=== PATIENT | male | born 1965 | race Caucasian/White ===

== ENCOUNTER 2016-10-07 20:52 | Inpatient (IN) | payer MEDICAID, OTHER ==
[~2016-10-07] VITALS: Ht 170.2 cm; Wt 104.0 kg
[2016-10-07 22:35] LABS: ADD SCAN DIFF NO
[2016-10-07 22:41] LABS: BASOPHILS % 0.5 % (0.0-2.0); EOSINOPHILS # 0.2 10^3/ul (0.0-0.5); EOSINOPHILS % 2.5 % (0.0-7.0); HEMATOCRIT 24.4 % (42.0-52.0); HEMOGLOBIN 7.8 g/dl (14.0-18.0); LYMPHOCYTES % 33.4 % (15.0-51.0); MEAN CORPUSCULAR HEMOGLOBIN 26.1 pg (29.0-33.0); MEAN CORPUSCULAR VOLUME 81.6 fl (82.0-101.0); MEAN PLATELET VOLUME 11.1 fl (7.4-10.4); MONOCYTE # 0.5 10^3/ul (0.3-0.9); MONOCYTES % 7.7 % (0.0-11.0); NEUTROPHIL # 3.4 10^3/ul (1.6-7.5); NEUTROPHILS % 55.7 % (39.0-77.0); PLATELET COUNT 216 10^3/UL (140-415); RED BLOOD COUNT 2.99 10^6/ul (4.70-6.10); RED CELL DISTRIBUTION WIDTH 14.4 % (11.5-14.5); WHITE BLOOD COUNT 6.1 10^3/ul (4.8-10.8)
--- NOTE | 2016-10-07 23:42 | RADRPT ---
PROCEDURE: XR Chest. CLINICAL INDICATION: Chest pain. TECHNIQUE: Portable AP upright view of the chest was obtained. COMPARISON: None. FINDINGS: The cardiomediastinal silhouette is within upper normal limits. Right greater than left lower lobe consolidation is probably atelectasis. The costophrenic angles are blunted unable to exclude small pleural effusions. There is no evidence of pulmonary vascular congestion. Right internal jugular P felipe-Cath is seen the tip projecting at the superior vena cava level above the right atrial junction . There is no evidence of pneumothorax. The osseous structures are intact with no evidence for acu te abnormality. RPTAT:HJJR IMPRESSION: 1. Right greater than left lower lobe consolidation likely atelectasis with small bilateral pleural effusions. Pneumonia with parapneumonic effusions is a possibility in the proper clinical setting. Correlation with cough and fever is recommended. 2. No evidence of congestive heart failure. 3. Right-sided internal jugular approach Perma-Cath in satisfactory position without evidence of pn eumothorax. Physician Denisse Date Time Electronically viewed and signed by Physician Denisse on 10/07/2016 23:41 JR/
[2016-10-07 23:46] LABS: INR 1.01; PARTIAL THROMBOPLASTIN TIME 29.7 Sec (25.0-35.0); PROTIME 13.3 Sec (12.2-14.2)
[2016-10-07 23:48] LABS: ALBUMIN 2.4 g/dl (3.3-4.9); ALBUMIN/GLOBULIN RATIO 0.82; CALCIUM 6.8 mg/dl (8.4-10.2); POTASSIUM 3.7 mmol/L (3.5-5.1); TOTAL PROTEIN 5.3 g/dl (6.1-8.1)
[2016-10-07 23:59] LABS: TROPONIN-I 0.035 ng/ml (0.00-0.12)
[2016-10-08] VITALS (13 sets, daily range): BP systolic 125–178; BP diastolic 69–95; PULSE 60–78; RESP 18–22; TEMP 98; Ht 170.2 cm; Wt 104.0 kg
[2016-10-08] MEDS ORDERED: hydrALAzine 20 MG INJ IV ONE
[2016-10-08] MEDS ORDERED: CALC0.2511 PO (00:12)
[2016-10-08] MEDS ORDERED: BUME0.5T PO (00:12)
[2016-10-08] MEDS ORDERED: DARB25VI IJ (00:12)
[2016-10-08] MEDS ORDERED: FOLI-49 PO (00:12)
[2016-10-08] MEDS ORDERED: ERGO500037 PO (00:12)
[2016-10-08] MEDS ORDERED: TAMS-14 PO (00:12)
[2016-10-08] MEDS ORDERED: LOSA50TA2 PO (00:12)
[2016-10-08] MEDS ORDERED: ATOR40TA68 PO (00:12)
[2016-10-08] MEDS ORDERED: CARV12.598 PO (00:12)
[2016-10-08] MEDS ORDERED: DOCU-159 PO (00:12)
--- NOTE | 2016-10-08 01:35 | RADRPT ---
PROCEDURE: CT head, without contrast. CLINICAL INDICATION: Involuntary twitching. TECHNIQUE: Noncontrast CT examination of the head, with axial, sagittal and coronal reformatted im ages. Automated dose exposure control was employed. CTDI: 89.62 and DLP: 1620.51. Repeated exam secondary to patient's twitching. COMPARISON: None. FINDINGS: Patient motion degrades images. Note acute hemorrhage. Subarachnoid spaces are substantially preserved and symmetric. Ventricles are unremarkable. No mass effect. Mooney-white matter distinction is preserved without evident decreased attenuation t o suggest acute or recent infarct. Sinuses and osseous structures are unremarkable. IMPRESSION: No acute process in the head. RPTAT: [facility] Physician Bc Date Time Electronically viewed and signed by Physician Bc on 10/08/2016 01:34 RS/
[2016-10-08] MEDS ORDERED: CEFEPIME 1GM/50 ML (PMX) 50 ML IVPB ONE (02:27)
[2016-10-08] MEDS ORDERED: CIPROFLOXACIN 400MG/D5W 200 ML IVPB ONE (02:28)
--- NOTE | 2016-10-08 02:34 | ERA ---
ER Documentation Chief Complaint Date/Time DATE: 10/08/16 TIME: 02:33 Chief Complaint weakness after being dialyzed today HPI This is a 51-year-old male complains of generalized weakness of pain. He also was of involuntary fasciculations of the upper extremities. He said he felt fevers and chills. No nausea no vomiting. No other current complaints. No focal neurological issues on the fasciculations as mentioned. ROS All systems reviewed and are negative except as per history of present illness. Medications Home Meds Reported Medications Losartan Potassium* (Cozaar*) 50 Mg Tablet, 50 MG PO DAILY, #30 TAB 10/08/16 Atorvastatin* (Atorvastatin*) 40 Mg Tablet, 40 MG PO QHS, #30 TAB 10/08/16 Folic Acid* (Folic Acid*) 1 Mg Tablet, 1 MG PO DAILY, TAB 10/08/16 Tamsulosin Hcl* (Flomax*) 0.4 Mg Cap.er.24h, 0.4 MG PO QPM, CAP 1 CAPSULE ORAL DAILY. TAKE AT NIGHT AND BE AWARE OF BP DROP, BE Careful with position change. 10/08/16 Ergocalciferol (Vitamin D2) (VITAMIN D2) 50,000 Unit Capsule, 94036 UNIT PO QWEEK-SUN, CAP 10/08/16 Carvedilol* (Coreg*) 12.5 Mg Tablet, 12.5 MG PO BID, #60 TAB 10/08/16 Docusate Sodium* (Docusate Sodium*) 100 Mg Capsule, 100 MG PO BID, #60 CAP 10/08/16 Calcitriol* (Calcitriol*) 0.25 Mcg Capsule, 0.25 MCG PO DAILY, CAP 10/08/16 Bumetanide* (Bumetanide*) 0.5 Mg Tablet, 0.5 MG PO DAILY, TAB 10/08/16 Darbepoetin Maximo in Polysorbat (Aranesp) 25 Mcg/1 Ml Vial, 25 MCG IJ QWEEK-SUN, VIAL 1ML SQ EVERY WEEK ON THURSDAY. RESTRICTED TO INITIATION OF THERAPY ONLY WHEN HEMOGLOBIN(Hgb)LEVELS LESS OSEK46l/dl. mONITOR Hgb LEVELS: MAX Hgb OF 10g?dl FOR CHRONIC KIDNEY DISEASE (CKD) WITHOUT DIALYSIS & 11g/dl FOR CKD WITH DIALYSIS.Hgb LEVELS TO BE MONITORES WEEKLY UNTIL STABLE, THEN EVERY MONTH. 10/08/16 Allergies Allergies: Coded Allergies: No Known Allergy (Unverified , 10/07/16) PMhx/Soc History of Surgery: Yes Anesthesia Reaction: No Hx Neurological Disorder: No Hx Respiratory Disorders: No Hx Cardiac Disorders: No Hx Psychiatric Problems: No Hx Miscellaneous Medical Probl: Yes (dialysis patient, renal disease) Hx Alcohol Use: No Hx Substance Use: No Hx Tobacco Use: No Smoking Status: Former smoker Physical Exam Vitals Vital Signs Date Time Temp Pulse Resp B/P Pulse Ox O2 Delivery O2 Flow Rate FiO2 10/08/16 01:28 97.7 69 16 174/92 100 Room Air 10/08/16 01:10 78 16 173/97 98 Room Air 10/08/16 00:31 168/86 10/08/16 00:18 181/101 10/07/16 23:58 62 16 216/102 100 Room Air 10/07/16 22:30 69 18 170/88 97 Room Air 10/07/16 20:57 97.7 80 20 198/99 99 Physical Exam Const: [] Head: Atraumatic Eyes: Normal Conjunctiva ENT: Normal External Ears, Nose and Mouth. Neck: Full range of motion..~ No meningismus. Resp: Clear to auscultation bilaterally Cardio: Regular rate and rhythm, no murmurs Abd: Soft, non tender, non distended. Normal bowel sounds Skin: No petechiae or rashes Back: No midline or flank tenderness Ext: No cyanosis, or edema Neur: Awake and alert Psych: Normal Mood and Affect Result Diagram: 10/07/16 2315 10/07/16 2315 Results 24 hrs Laboratory Tests Test 10/07/16 23:15 White Blood Count 6.110^3/ul Red Blood Count 2.9910^6/ul Hemoglobin 7.8g/dl Hematocrit 24.4% Mean Corpuscular Volume 81.6fl Mean Corpuscular Hemoglobin 26.1pg Mean Corpuscular Hemoglobin Concent 32.0g/dl Red Cell Distribution Width 14.4% Platelet Count 32476^3/UL Mean Platelet Volume 11.1fl Neutrophils % 55.7% Lymphocytes % 33.4% Monocytes % 7.7% Eosinophils % 2.5% Basophils % 0.5% Nucleated Red Blood Cells % 0.0/100WBC Neutrophils # 3.410^3/ul Lymphocytes # 2.010^3/ul Monocytes # 0.510^3/ul Eosinophils # 0.210^3/ul Basophils # 0.010^3/ul Nucleated Red Blood Cells # 0.010^3/ul Prothrombin Time 13.3Sec Prothrombin Time Ratio 1.0 INR International Normalized Ratio 1.01 Activated Partial Thromboplast Time 29.7Sec Sodium Level 136mmol/L Potassium Level 3.7mmol/L Chloride Level 101mmol/L Carbon Dioxide Level 32mmol/L Anion Gap 7 Blood Urea Nitrogen 26mg/dl Creatinine 5.00mg/dl Glucose Level 145mg/dl Calcium Level 6.8mg/dl Total Bilirubin 0.0mg/dl Direct Bilirubin 0.00mg/dl Indirect Bilirubin 0.0mg/dl Aspartate Amino Transf (AST/SGOT) 26IU/L Alanine Aminotransferase (ALT/SGPT) 25IU/L Alkaline Phosphatase 51IU/L Troponin I 0.035ng/ml B-Type Natriuretic Peptide 68685ZH/ML Total Protein 5.3g/dl Albumin 2.4g/dl Globulin 2.90g/dl Albumin/Globulin Ratio 0.82 Lipase 84U/L Current Medications Medications (Trade) Dose Ordered Sig/Gabriella Route PRN Reason Start Time Stop Time Status Last Admin Dose Admin Hydralazine HCl 20 mg 20 mg ONCE ONCE IV 10/08/16 00:00 10/08/16 00:01 DC 10/08/16 00:01 Cefepime HCl 50 ml @ 100 mls/hr ONCE ONCE IVPB 10/08/16 02:27 10/08/16 02:56 Ciprofloxacin/ Dextrose (Cipro Ivpb) 200 ml @ 200 mls/hr ONCE ONCE IVPB 10/08/16 02:28 10/08/16 03:27 Procedures/MDM EKG: Rate/Rhythm: [Normal Sinus Rhythm] QRS, ST, T-waves: [No changes consistent w/ acute ischemia] Impression: [No evidence of ischemia or arrhythmia] Chest X-ray 1V Interpreted by me: Soft Tissue: No acute abnormalities Bones: No acute abnormalities Mediastinum/Cardiac Silhouette/Lungs: Bilateral patchy infiltrates CT of the head is negative Medical decision-makin-year-old male with bilateral pneumonia. Started on broad-spectrum antibiotics post blood cultures. Will be admitted to hospitalist. Departure Diagnosis: Primary Impression: Acute weakness Additional Impression: Bilateral pneumonia Qualified Code: J18.9 - Pneumonia of both lower lobes due to infectious organism Condition: Serious XAVIER ANDRADE October 08, 2016 02:34
[2016-10-08] MEDS ORDERED: morphine 4 MG/ML VIAL IV STA (02:58)
[2016-10-08] MEDS ORDERED: ONDANSETRON 4 MG INJ IV STA (02:58)
[2016-10-08] MEDS ORDERED: ONDANSETRON 4 MG INJ IV PRN (05:00)
[2016-10-08] MEDS ORDERED: ALBUTEROL/IPRATROPIUM (NEB) 3 ML AMP HHN PRN (05:00)
[2016-10-08] MEDS ORDERED: GLUCOSE GEL 15 GRAM TUBE PO PRN ×2 (05:15)
[2016-10-08] MEDS ORDERED: GLUCAGON 1 MG INJ IM PRN (05:15)
[2016-10-08] MEDS ORDERED: GLUCOSE GEL 15 GRAM TUBE BUCCAL PRN (05:15)
[2016-10-08] MEDS ORDERED: DEXTROSE 50% 50 ML SYRINGE IV PRN ×2 (05:15)
[2016-10-08] MEDS: INSULIN ASPART [NOVOLOG] 3 ML PEN SC SCH ×4 (07:55→20:29)
[2016-10-08] MEDS: hydrALAzine 20 MG INJ IV PRN (08:12)
[2016-10-08] MEDS: INSULIN GLARGINE [LANtus] 3 ML PEN SC SCH (08:15)
[2016-10-08] MEDS: ACETAMINOPHEN 325 MG TAB PO PRN (08:22)
--- NOTE | 2016-10-08 10:06 | QN ---
Documentation Comment Problem list: 1. Involuntary muscle jerks versus fasciculations likely secondary to hypocalcemia: We will also rule out order electrolyte abnormalities 2. Uncontrolled hypertension 3. End-stage renal disease on hemodialysis with severe fluid retention 4. Anemia of chronic kidney disease Plan: * Replace electrolytes * Lower extremity Dopplers to rule out DVT * Consider albumin infusion possible diuretic therapy to help with severe fluid retention * Titrate antihypertensives for improved control * If no improvement with jerks, consider muscle relaxants. JOSE SANCHEZ October 08, 2016 10:06
[2016-10-08] MEDS ORDERED: LOSARTAN 50 MG TAB PO SCH (10:30)
[2016-10-08] MEDS ORDERED: ALBUMIN HUMAN 25% 100 ML IV SCH (10:30)
[2016-10-08] MEDS ORDERED: ERGOCALCIFEROL 50,000 UNIT CAP PO SCH (10:30)
[2016-10-08] MEDS ORDERED: CALCIUM GLUCONATE 10% 2 GM in SOD CHLORIDE 0.9% 100 ML IVPB ONE (11:00)
--- NOTE | 2016-10-08 11:02 | HP ---
DATE OF ADMISSION: 10/08/2016 CHIEF COMPLAINT: Uncontrolled body shaking. HISTORY OF PRESENT ILLNESS: The patient is a 51-year-old male with a history of end-stage renal dis ease on dialysis, hypertension, diabetes, gout, who presents to the emergency department with the sulema stated chief complaint. He states starting 2 days ago he noticed that his upper body including both of his arms and his face, was starting to shake uncontrollably. Symptoms usually last a few se conds, but it happened so often repeatedly. He denied any weakness, numbness, visual disturbance, h eadache. He also denied any recent trauma. He seems to suggest that this uncontrolled movement for the most part seems to start when he tries to do something, but it also happens when he is at rest. During my interview, I actually noticed the movements and that they happened every 3 minutes or so , lasting 2 to 3 seconds. The patient denied similar problems in the past. When the patient presented to the ER, initially his blood pressure was 174/92. Laboratory values sh ow a hemoglobin of 7.8 and also his BNP was almost 77,000. Head CT was done which was negative for any acute findings. The chest x-ray shows bilateral pneumonia, right greater than left, with possib ility of pneumonia with parapneumonic effusion. The patient was given antihypertensive, Zofran, betsy n medication as well as ciprofloxacin and cefepime when he was in the ER. REVIEW OF SYSTEMS: A 12-point review of systems was performed, negative except as mentioned in the HPI. PAST MEDICAL HISTORY: As per HPI. PAST SURGICAL HISTORY: Back surgery. SOCIAL HISTORY: Denied history of tobacco, alcohol or illicit drug use. ALLERGIES: NO KNOWN DRUG ALLERGIES. HOME MEDICATIONS: 1. Tamsulosin. 2. Aranesp weekly. 3. Lipitor. 4. Coreg. 5. Cozaar. 6. Bumex. 7. Docusate. 8. Calcitriol. 9. Folic acid. 10. . PHYSICAL EXAMINATION: VITAL SIGNS: Blood pressure 170/93, heart rate 74, respiratory rate 20, temperature 97.8, oxygen sa turation 94% on room air. GENERAL: The patient lying in bed in no acute distress. He is answering questions appropriately. HEENT: No obvious head deformity. Pupils are reactive to light. Extraocular muscles intact. CARDIOVASCULAR: Regular rate and rhythm with no extra sounds. LUNGS: Clear. ABDOMEN: Soft, nontender, nondistended. Positive bowel sounds. EXTREMITIES: No edema. NEUROLOGIC: He has 5/5 strength in both upper and lower extremities. No focal deficits. Sensation s are intact. He is alert and oriented. LABORATORY DATA: Pertinent positives results as mentioned in the HPI. IMAGING: Chest x-ray and CT of the head results as mentioned in the HPI. IMPRESSION: 1. Uncontrolled body movements. 2. End-stage renal disease, on dialysis. 3. Hypertension, blood pressure not within goal. 4. History of diabetes. 5. History of gout. 6. History of depression. 7. Anemia, likely anemia of chronic disease. PLAN: We will obtain an MRI of the brain to help in the diagnosis of his presentation. We will sommer ce a neurology consult. The symptom could possibly be essential tremor. We will await neurology ev aluation. In the meantime, we will place a nephrology consult for continued dialysis. We will cont inue his home medications with adjustment as needed. He needs better blood pressure control. We wi ll continue diuresis management. His anemia is likely a result of chronic disease from renal failur e. We will check iron profile and ferritin. We will monitor his hemoglobin and transfuse if needed . Further workup and management will be per clinical course. Dictated By: XAVIER CONKLIN/AWILDA Conf#: [id number] DID#: [id number]
--- NOTE | 2016-10-08 11:23 | RADRPT ---
PROCEDURE: US DVT. CLINICAL INDICATION: Bilateral lower extremity edema. Evaluate for deep venous thrombosis.. TECHNIQUE: Multiple longitudinal and transverse images of the bilateral lower extremity veins were obtained with paul scale and color Doppler imaging. 2D grayscale measurements with compression, co juan Doppler flow, and augmentation was performed. The calf veins were interrogated as well. COMPARISON: No prior studies are available for comparison. FINDINGS: The bilateral common femoral, superficial femoral and popliteal veins are normally compressible thro ughout. Color flow demonstrates normal filling of the vessel. Normal waveforms are visualized and there is normal response to augmentation. IMPRESSION: 1. No evidence of a deep vein thrombosis involving either lower extremity. RPTAT: [facility] Physician Mikaela Date Time Electronically viewed and signed by Physician Mikaela on 10/08/2016 11:22 /
[2016-10-08] MEDS: FUROSEMIDE 40 MG INJ IV SCH ×2 (11:48→18:21)
[2016-10-08] MEDS: DOCUSATE SODIUM 100 MG CAP PO SCH ×2 (11:48→20:17)
[2016-10-08] MEDS: CALCITRIOL 0.25 MCG CAP PO SCH (11:48)
[2016-10-08 11:55] LABS: ADD SCAN DIFF NO
[2016-10-08 12:02] LABS: BASOPHILS % 0.5 % (0.0-2.0); EOSINOPHILS # 0.1 10^3/ul (0.0-0.5); HEMATOCRIT 25.6 % (42.0-52.0); HEMOGLOBIN 8.3 g/dl (14.0-18.0); LYMPHOCYTES # 1.1 10^3/ul (0.8-2.9); LYMPHOCYTES % 17.8 % (15.0-51.0); MEAN CORPUSCULAR HEMOGLOBIN 26.4 pg (29.0-33.0); MEAN CORPUSCULAR HGB CONC 32.4 g/dl (32.0-37.0); MEAN CORPUSCULAR VOLUME 81.5 fl (82.0-101.0); MONOCYTE # 0.4 10^3/ul (0.3-0.9); MONOCYTES % 6.1 % (0.0-11.0); NEUTROPHIL # 4.4 10^3/ul (1.6-7.5); NEUTROPHILS % 73.9 % (39.0-77.0); PLATELET COUNT 236 10^3/UL (140-415); RED BLOOD COUNT 3.14 10^6/ul (4.70-6.10); RED CELL DISTRIBUTION WIDTH 14.2 % (11.5-14.5); WHITE BLOOD COUNT 5.9 10^3/ul (4.8-10.8)
[2016-10-08] MEDS: HEPARIN 5,000 UNIT/0.5 ML VIAL SC SCH ×2 (12:04→20:28)
[2016-10-08 12:22] LABS: ALBUMIN 2.4 g/dl (3.3-4.9); ALBUMIN/GLOBULIN RATIO 0.77; CALCIUM 6.8 mg/dl (8.4-10.2); CREATININE 5.62 mg/dl (0.61-1.24); MAGNESIUM 1.6 mg/dl (1.7-2.5); PHOSPHORUS 4.3 mg/dl (2.5-4.9); POTASSIUM 4.1 mmol/L (3.5-5.1); TOTAL PROTEIN 5.5 g/dl (6.1-8.1)
[2016-10-08] MEDS ORDERED: LEVOFLOXACIN 500MG/D5W (PMX) 100 ML IVPB ONE (15:00)
[2016-10-08] MEDS ORDERED: NIFEdipine (XL) 30 MG TAB PO ONE (18:30)
--- NOTE | 2016-10-08 18:43 | CONS ---
DATE OF ADMISSION: 10/08/2016 DATE OF CONSULTATION: 10/08/2016 TYPE OF CONSULTATION: Nephrology. REFERRING PHYSICIAN: JOSE SANCHEZ MD. REASON FOR CONSULTATION: Maintenance hemodialysis in a chronic dialysis patient , accelerated hypertension. HISTORY OF PRESENT ILLNESS: This is a 51-year-old male with a past medical history of hypertension, diabetes mellitus, depression, history of gout, end- stage renal disease on hemodialysis who goes to the [facility] Dialysis unit. The patient presented with generalized weakness, fatigue, and also was complaining of some shortness of breath. The patient is noted to have uncontrolled body shaking associated with elevated blood pressure of 174/92. His hemoglobin was 7.8 and BNP was 77,000. CT was done which was negative for any acute findings. Chest x-ray shows bilateral pneumonia, right greater than left. The possibility of pneumonia with parapneumonic effusions. He was given IV antibiotics and antihypertensive Zofran in the emergency room and he gets admitted to the telemetry floor for further workup and treatment. REVIEW OF SYSTEMS: Positive for shortness of breath, weakness, sweating and uncontrolled body shaking. PAST MEDICAL HISTORY: Hypertension, diabetes mellitus, gout, end-stage renal disease on hemodialysis Thursday, and Thursday. PAST SURGICAL HISTORY: History of back surgery. SOCIAL HISTORY: The patient denies any history of tobacco smoking, alcohol or illicit drug use. ALLERGIES: NO KNOWN DRUG ALLERGIES. HOME MEDICATIONS: As per medical reconciliation. PHYSICAL EXAMINATION: VITAL SIGNS: Temperature 98.2, heart rate 60, respiration 19, blood pressure 160/80, saturation 98% on 2 liters nasal cannula. GENERAL: Awake, alert. Mild distress due to the shortness of breath. HEENT: Normal. Oropharynx clear. Pupil equal, round, reactive to light and accommodation. NECK: Supple, no JVD, no lymphadenopathy. LUNGS: Bibasilar crackles present. No wheezing. HEART: S1, S2, with regular rhythm, no murmur. ABDOMEN: Soft, nontender, nondistended. Bowel sounds are present. EXTREMITIES: 1+ pitting edema. NEUROLOGICAL: Nonfocal, intact. PSYCHIATRIC: Appropriate affect and mood. LABORATORY DATA/DIAGNOSTIC IMAGING: WBC 5.9, hemoglobin 8.3, platelet count 236. Sodium 135, potassium 4.1, chloride 101, bicarbonate 31, BUN 28, creatinine 5.6, glucose 105, calcium 6.8, albumin is 2.4, magnesium 1.6. PT 13 , PTT 29, INR 1.01. IMPRESSION: This is a 59-year-old male who is getting admitted by hospitalist team for uncontrolled body movements, possible pneumonia and renal has been consulted for monitoring his hemodialysis. 1. End-stage renal disease on hemodialysis 3 times a week. 2. Accelerated hypertension. 3. Uncontrolled body movements. 4. History of diabetes mellitus. 5. History of gout. 6. History of depression. 7. History of anemia of chronic renal disease. PLAN: Thank you, Dr. Sanchez for this consultation. The patient gets his regular scheduled dialysis on Thursday, and Thursday. Currently, his blood pressure is high, but his electrolytes are stable. I will plan for his hemodialysis to be done tomorrow. 1. MRI has been ordered for workup of uncontrolled body movements. 2. Due to his elevated blood pressures, I will give patient Procardia-XL 30 mg p.o. daily x1 dose now and then we will use hydralazine p.r.n. systolic blood pressure more than 150. 3. The patient is currently seen on the telemetry floor, continued ergocalciferol 50,000 units every week for his Vitamin D deficiency. 4. The patient is currently seen in the emergency room and he will be followed up along with his course in the hospital. Dictated By: TRIPP GARAY MD, KP/AWILDA Conf#: [id number] DID#: [id number] MTDD
[2016-10-08] MEDS ORDERED: MAGNESIUM SULFATE 1 GM/D5W 100 ML IVPB ONE (19:30)
[2016-10-08] MEDS: TAMSULOSIN (SR) 0.4 MG CAP PO SCH (20:17)
[2016-10-09] VITALS (20 sets, daily range): BP systolic 136–196; BP diastolic 74–105; PULSE 62–79; RESP 18–20
[2016-10-09] MEDS: ACCU-CHEK XX SCH (02:00)
[2016-10-09] MEDS ORDERED: morphine 4 MG/ML VIAL IV PRN (04:00)
[2016-10-09] MEDS: FUROSEMIDE 40 MG INJ IV SCH ×2 (05:45→18:52)
--- NOTE | 2016-10-09 06:08 | RADRPT ---
PROCEDURE: CT Chest without contrast. CLINICAL INDICATION: Shortness of breath and hypoxia TECHNIQUE: Spiral CT images through the chest without contrast. Coronal and sagittal reformatted images were obtained from the axial source images. The total exam CTDI equals 15.84 mGy and the tota l exam DLP equals 611.51 mGy-cm. One or more of the following dose reduction techniques were used: a utomated exposure control, adjustment of the mA and/or kV according to patient size, or use of itera tive reconstruction technique. COMPARISON: Chest x-ray from 10/07 FINDINGS: Large right and tiny left pleural effusions are seen with associated compressive atelectasis. Right dialysis catheter is seen with tip in the right atrium. Small to moderate pericardial effusion is s een. The heart size is top normal. Aortic and coronary artery calcification is seen. There is diff use anasarca. No definite hilar or mediastinal adenopathy. The gallbladder is contracted. Mild deg enerative change of the spine is seen. Old left posterior rib fractures.. IMPRESSION: Cardiomegaly and small to moderate pericardial effusion. Right greater than left pleural effusions with associated compressive atelectasis. Dialysis catheter. Anasarca. Atherosclerotic change. RPTAT: [facility] Physician Suzie Date Time Electronically viewed and signed by Eulalia Palmer Physician on 10/09/2016 06:08 DEMETRIO/
[2016-10-09] MEDS: INSULIN ASPART [NOVOLOG] 3 ML PEN SC SCH ×4 (07:55→21:00)
[2016-10-09] MEDS: INSULIN GLARGINE [LANtus] 3 ML PEN SC SCH (08:41)
[2016-10-09] MEDS: HEPARIN 5,000 UNIT/0.5 ML VIAL SC SCH ×2 (09:00→21:00)
--- NOTE | 2016-10-09 09:16 | CONS ---
Date/Time of Note Date/Time of Note DATE: 10/09/16 TIME: 09:09 Assessment/Plan Assessment/Plan Additional Assessment/Plan 1. End-stage renal disease on hemodialysis 3 times a week. 2. Accelerated hypertension. 3. Uncontrolled body movements. 4. History of diabetes mellitus. 5. History of gout. 6. History of depression. 7. History of anemia of chronic renal disease. PLAN: plan for HD today and tomorrow with ultrafiltration BP stable afebrile, neurology consult MRI brain will follow up Consultation Date/Type/Reason Admit Date/Time October 08, 2016 at 02:28 Initial Consult Date September Type of Consultation: NEPHROLOGY Reason for Consultation ESRD on HD chronic Referring Provider: JOSE SANCHEZ 24 HR Interval Summary Free Text/Dictation c/o jerking movements, Plan for HD today Exam/Review of Systems Vital Signs Vitals Vital Signs Date Time Temp Pulse Resp B/P Pulse Ox O2 Delivery O2 Flow Rate FiO2 10/09/16 08:00 62 10/09/16 07:32 98.3 19 157/79 96 10/08/16 16:50 2.0 28 10/08/16 04:15 Room Air Intake and Output 10/08/16 10/08/16 10/09/16 15:00 23:00 07:00 Intake Total 220 ml 450 ml 800 ml Output Total 200 ml 900 ml Balance 20 ml 450 ml -100 ml Exam GENERAL: Awake, alert. Mild distress due to the shortness of breath. HEENT: Normal. Oropharynx clear. Pupil equal, round, reactive to light and accommodation. NECK: Supple, no JVD, no lymphadenopathy. LUNGS: Bibasilar crackles present. No wheezing. HEART: S1, S2, with regular rhythm, no murmur. ABDOMEN: Soft, nontender, nondistended. Bowel sounds are present. EXTREMITIES: 2+ pitting edema. NEUROLOGICAL: Nonfocal, intact. PSYCHIATRIC: Appropriate affect and mood. Results Result Diagram: 10/08/16 1127 10/08/16 1127 Results 24 hrs Laboratory Tests Test 10/08/16 11:27 10/08/16 12:01 10/08/16 17:36 10/08/16 20:19 White Blood Count 5.9 Red Blood Count 3.14 L Hemoglobin 8.3 L Hematocrit 25.6 L Mean Corpuscular Volume 81.5 L Mean Corpuscular Hemoglobin 26.4 L Mean Corpuscular Hemoglobin Concent 32.4 Red Cell Distribution Width 14.2 Platelet Count 236 Mean Platelet Volume 11.0 H Neutrophils % 73.9 Lymphocytes % 17.8 Monocytes % 6.1 Eosinophils % 1.0 Basophils % 0.5 Nucleated Red Blood Cells % 0.0 Neutrophils # 4.4 Lymphocytes # 1.1 Monocytes # 0.4 Eosinophils # 0.1 Basophils # 0.0 Nucleated Red Blood Cells # 0.0 Sodium Level 135 Potassium Level 4.1 Chloride Level 101 Carbon Dioxide Level 31 Anion Gap 7 L Blood Urea Nitrogen 28 H Creatinine 5.62 H Glucose Level 115 Calcium Level 6.8 L Phosphorus Level 4.3 Magnesium Level 1.6 L Total Bilirubin 0.0 L Direct Bilirubin 0.00 Indirect Bilirubin 0.0 Aspartate Amino Transf (AST/SGOT) 21 Alanine Aminotransferase (ALT/SGPT) 24 Alkaline Phosphatase 55 Total Protein 5.5 L Albumin 2.4 L Globulin 3.10 Albumin/Globulin Ratio 0.77 Bedside Glucose 116 75 125 Test 10/09/16 08:20 Bedside Glucose 93 Medications Medications Current Medications Ondansetron HCl (Zofran Inj) 4 mg Q6H PRN IV NAUSEA AND/OR VOMITING; Start at 05:00 Acetaminophen (Tylenol Tab) 650 mg Q6H PRN PO PAIN AND OR ELEVATED TEMP Last administered on 10/08/16 08:22; Admin Dose 650 MG; Start 10/08/16 at 05:00 Insulin Glargine (Lantus) 10 unit DAILY@08 SC Last administered on 10/09/16 08 :41; Admin Dose 10 UNIT; Start 10/08/16 at 08:00 Diagnostic Test (Pha) (Accu-Chek) 1 ea 02 XX ; Start 10/09/16 at 02:00 Miscellaneous Information 1 ea NOTE XX ; Start 10/08/16 at 05:15 Glucose (Glutose) 15 gm Q15M PRN PO DECREASED GLUCOSE; Start 10/08/16 at 05:15 Glucose (Glutose) 22.5 gm Q15M PRN PO DECREASED GLUCOSE; Start 10/08/16 at 05: 15 Dextrose (D50w Syringe) 25 ml Q15M PRN IV DECREASED GLUCOSE; Start 10/08/16 at 05:15 Dextrose (D50w Syringe) 50 ml Q15M PRN IV DECREASED GLUCOSE; Start 10/08/16 at 05:15 Glucagon (Glucagen) 1 mg Q15M PRN IM DECREASED GLUCOSE; Start 10/08/16 at 05:15 Glucose 15 gm 15 gm Q15M PRN BUCCAL DECREASED GLUCOSE; Start 10/08/16 at 05:15 Levofloxacin/ Dextrose (Levaquin 250 Mg/ D5W 50 ml (Pmx)) 50 ml @ 50 mls/hr Q48H IVPB ; Start 10/10/16 at 15:00 Hydralazine HCl (Apresoline) 10 mg Q4H PRN IV ELEVATED BLOOD PRESSURE Last administered on 10/08/16 08:12; Admin Dose 10 MG; Start 10/08/16 at 08:00 Calcitriol (Rocaltrol) 0.25 mcg DAILY PO Last administered on 10/08/16 11:48; Admin Dose 0.25 MCG; Start 10/08/16 at 10:30 Carvedilol (Coreg) 12.5 mg BID PO Last administered on 10/08/16 20:17; Admin Dose 12.5 MG; Start 10/08/16 at 10:30 Docusate Sodium (Colace) 100 mg BID PO Last administered on 10/08/16 20:17; Admin Dose 100 MG; Start 10/08/16 at 10:30 Ergocalciferol (Drisdol) 50,000 unit We@09 PO Last administered on 10/08/16 11 :49; Admin Dose 50,000 UNIT; Start 10/08/16 at 10:30 Folic Acid (Folic Acid) 1 mg DAILY PO ; Start 10/09/16 at 09:00 Losartan Potassium (Cozaar) 50 mg DAILY PO Last administered on 10/08/16 11:48 ; Admin Dose 50 MG; Start 10/08/16 at 10:30 Tamsulosin HCl (Flomax) 0.4 mg QPM PO Last administered on 10/08/16 20:17; Admin Dose 0.4 MG; Start 10/08/16 at 21:00 Heparin Sodium (Porcine) (Heparin (5000 Units/0.5 ml)) 5,000 unit BID SC Last administered on 10/08/16 20:28; Admin Dose 5,000 UNIT; Start 10/08/16 at 10:30 Morphine Sulfate (morphine) 4 mg Q4H PRN IV PAIN Last administered on t 04:22; Admin Dose 4 MG; Start 10/09/16 at 04:00 TRIPP GARAY MD October 09, 2016 09:16
--- NOTE | 2016-10-09 10:55 | PN ---
Date/Time of Note Date/Time of Note DATE: 10/09/16 TIME: 10:46 Assessment/Plan VTE Prophylaxis VTE Prophylaxis Intervention: heparin Lines/Catheters IV [facility]from [facility] Saline Lock Assessment/Plan Assessment/Plan 1. Uncontrolled body movements. * It is unclear if these are real or not. Patient seems to be comfortable when he is not aware that one is watching him, but when spoken to or asked any questions he starts to have the movements which have no real clear definition or orientation to them. * MRI has been ordered by car repair supervisor, will obtain neurology consultation. Follow-up creatinine kinase, follow-up electrolyte screen. Will also add on the thyroid function panel. 2. End-stage renal disease, on dialysis. * Hemodialysis per nephrology. 3. Hypertension, blood pressure not within goal. * Will titrate blood pressure for improved control. Patient's blood pressure will also improve as we take out more fluid. 4. Diabetes? * Patient has no history of being in any medications for diabetes. He is having great control here on only low-dose Lantus. Will hold Lantus for now, put on Carb controlled diet and see how he does. 5. History of gout. * Continue home meds 6. History of depression. * Continue home meds 7. Anemia, likely anemia of chronic disease. * Secondary to end-stage renal disease, continue monitoring. 8. Bilateral pleural effusions on CAT scan: Likely secondary to fluid overload , will order thoracentesis. We will send pleural fluid for culture to rule out underlying pneumonia. Exam/Review of Systems Vital Signs Vitals Vital Signs Date Time Temp Pulse Resp B/P Pulse Ox O2 Delivery O2 Flow Rate FiO2 10/09/16 08:00 62 10/09/16 07:32 98.3 19 157/79 96 10/08/16 16:50 2.0 28 10/08/16 04:15 Room Air Intake and Output 10/08/16 10/08/16 10/09/16 15:00 23:00 07:00 Intake Total 220 ml 450 ml 800 ml Output Total 200 ml 900 ml Balance 20 ml 450 ml -100 ml Exam Constitutional: other (Lethargic) Head: normocephalic Eyes: PERRL Neck: supple Respiratory: clear to auscultation, diminished breath sounds Musculoskeletal: other (Patient started having straight leg movements after walking into the room. Prior to that he was comfortable. Movement may be precipitated by stimulation) Extremities: pitting pedal edema (3+ bilateral pitting edema) Neurological: lethargic, No focal weakness ( ) Results Result Diagram: 10/08/16 1127 10/08/16 1127 Results 24 hrs Laboratory Tests Test 10/08/16 11:27 10/08/16 12:01 10/08/16 17:36 10/08/16 20:19 White Blood Count 5.9 Red Blood Count 3.14 L Hemoglobin 8.3 L Hematocrit 25.6 L Mean Corpuscular Volume 81.5 L Mean Corpuscular Hemoglobin 26.4 L Mean Corpuscular Hemoglobin Concent 32.4 Red Cell Distribution Width 14.2 Platelet Count 236 Mean Platelet Volume 11.0 H Neutrophils % 73.9 Lymphocytes % 17.8 Monocytes % 6.1 Eosinophils % 1.0 Basophils % 0.5 Nucleated Red Blood Cells % 0.0 Neutrophils # 4.4 Lymphocytes # 1.1 Monocytes # 0.4 Eosinophils # 0.1 Basophils # 0.0 Nucleated Red Blood Cells # 0.0 Sodium Level 135 Potassium Level 4.1 Chloride Level 101 Carbon Dioxide Level 31 Anion Gap 7 L Blood Urea Nitrogen 28 H Creatinine 5.62 H Glucose Level 115 Calcium Level 6.8 L Phosphorus Level 4.3 Magnesium Level 1.6 L Total Bilirubin 0.0 L Direct Bilirubin 0.00 Indirect Bilirubin 0.0 Aspartate Amino Transf (AST/SGOT) 21 Alanine Aminotransferase (ALT/SGPT) 24 Alkaline Phosphatase 55 Total Protein 5.5 L Albumin 2.4 L Globulin 3.10 Albumin/Globulin Ratio 0.77 Bedside Glucose 116 75 125 Test 10/09/16 08:20 10/09/16 09:40 Bedside Glucose 93 Creatine Kinase 221 H Medications Medications Current Medications Ondansetron HCl (Zofran Inj) 4 mg Q6H PRN IV NAUSEA AND/OR VOMITING; Start at 05:00 Acetaminophen (Tylenol Tab) 650 mg Q6H PRN PO PAIN AND OR ELEVATED TEMP Last administered on 10/08/16 08:22; Admin Dose 650 MG; Start 10/08/16 at 05:00 Insulin Glargine (Lantus) 10 unit DAILY@08 SC Last administered on 10/09/16 08 :41; Admin Dose 10 UNIT; Start 10/08/16 at 08:00 Diagnostic Test (Pha) (Accu-Chek) 1 ea 02 XX ; Start 10/09/16 at 02:00 Miscellaneous Information 1 ea NOTE XX ; Start 10/08/16 at 05:15 Glucose (Glutose) 15 gm Q15M PRN PO DECREASED GLUCOSE; Start 10/08/16 at 05:15 Glucose (Glutose) 22.5 gm Q15M PRN PO DECREASED GLUCOSE; Start 10/08/16 at 05: 15 Dextrose (D50w Syringe) 25 ml Q15M PRN IV DECREASED GLUCOSE; Start 10/08/16 at 05:15 Dextrose (D50w Syringe) 50 ml Q15M PRN IV DECREASED GLUCOSE; Start 10/08/16 at 05:15 Glucagon (Glucagen) 1 mg Q15M PRN IM DECREASED GLUCOSE; Start 10/08/16 at 05:15 Glucose 15 gm 15 gm Q15M PRN BUCCAL DECREASED GLUCOSE; Start 10/08/16 at 05:15 Levofloxacin/ Dextrose (Levaquin 250 Mg/ D5W 50 ml (Pmx)) 50 ml @ 50 mls/hr Q48H IVPB ; Start 10/10/16 at 15:00 Hydralazine HCl (Apresoline) 10 mg Q4H PRN IV ELEVATED BLOOD PRESSURE Last administered on 10/08/16 08:12; Admin Dose 10 MG; Start 10/08/16 at 08:00 Calcitriol (Rocaltrol) 0.25 mcg DAILY PO Last administered on 10/08/16 11:48; Admin Dose 0.25 MCG; Start 10/08/16 at 10:30 Carvedilol (Coreg) 12.5 mg BID PO Last administered on 10/08/16 20:17; Admin Dose 12.5 MG; Start 10/08/16 at 10:30 Docusate Sodium (Colace) 100 mg BID PO Last administered on 10/08/16 20:17; Admin Dose 100 MG; Start 10/08/16 at 10:30 Ergocalciferol (Drisdol) 50,000 unit We@09 PO Last administered on 10/08/16 11 :49; Admin Dose 50,000 UNIT; Start 10/08/16 at 10:30 Folic Acid (Folic Acid) 1 mg DAILY PO ; Start 10/09/16 at 09:00 Losartan Potassium (Cozaar) 50 mg DAILY PO Last administered on 10/08/16 11:48 ; Admin Dose 50 MG; Start 10/08/16 at 10:30 Tamsulosin HCl (Flomax) 0.4 mg QPM PO Last administered on 10/08/16 20:17; Admin Dose 0.4 MG; Start 10/08/16 at 21:00 Heparin Sodium (Porcine) (Heparin (5000 Units/0.5 ml)) 5,000 unit BID SC Last administered on 10/08/16 20:28; Admin Dose 5,000 UNIT; Start 10/08/16 at 10:30 Morphine Sulfate (morphine) 4 mg Q4H PRN IV PAIN Last administered on 04:22; Admin Dose 4 MG; Start 10/09/16 at 04:00 Procedures Procedures PROCEDURE: CT Chest without contrast. CLINICAL INDICATION: Shortness of breath and hypoxia TECHNIQUE: Spiral CT images through the chest without contrast. Coronal and sagittal reformatted images were obtained from the axial source images. The total exam CTDI equals 15.84 mGy and the total exam DLP equals 611.51 mGy-cm. One or more of the following dose reduction techniques were used: automated exposure control, adjustment of the mA and/or kV according to patient size, or use of iterative reconstruction technique. COMPARISON: Chest x-ray from 10/07 FINDINGS: Large right and tiny left pleural effusions are seen with associated compressive atelectasis. Right dialysis catheter is seen with tip in the right atrium. Small to moderate pericardial effusion is seen. The heart size is top normal. Aortic and coronary artery calcification is seen. There is diffuse anasarca. No definite hilar or mediastinal adenopathy. The gallbladder is contracted. Mild degenerative change of the spine is seen. Old left posterior rib fractures.. IMPRESSION: Cardiomegaly and small to moderate pericardial effusion. Right greater than left pleural effusions with associated compressive atelectasis. Dialysis catheter. Anasarca. Atherosclerotic change. RPTAT: HLBE Physician Suzie Date Time Electronically viewed and signed by Eulalia Palmer Physician on 10/09/2016 06 :08 LE/ CC: TRIPP GARAY MD, BOLATITO M. October 09, 2016 10:55
[2016-10-09 11:16] LABS: ADD SCAN DIFF NO
[2016-10-09 11:18] LABS: BASOPHILS % 0.5 % (0.0-2.0); EOSINOPHILS # 0.2 10^3/ul (0.0-0.5); EOSINOPHILS % 2.8 % (0.0-7.0); HEMATOCRIT 23.3 % (42.0-52.0); HEMOGLOBIN 7.6 g/dl (14.0-18.0); LYMPHOCYTES % 34.8 % (15.0-51.0); MEAN CORPUSCULAR HEMOGLOBIN 27.1 pg (29.0-33.0); MEAN CORPUSCULAR HGB CONC 32.6 g/dl (32.0-37.0); MEAN CORPUSCULAR VOLUME 83.2 fl (82.0-101.0); MEAN PLATELET VOLUME 11.3 fl (7.4-10.4); MONOCYTE # 0.4 10^3/ul (0.3-0.9); MONOCYTES % 6.9 % (0.0-11.0); NEUTROPHIL # 3.2 10^3/ul (1.6-7.5); NEUTROPHILS % 54.8 % (39.0-77.0); PLATELET COUNT 226 10^3/UL (140-415); RED CELL DISTRIBUTION WIDTH 14.2 % (11.5-14.5); WHITE BLOOD COUNT 5.8 10^3/ul (4.8-10.8)
[2016-10-09 11:24] LABS: ALBUMIN 2.4 g/dl (3.3-4.9); ALBUMIN/GLOBULIN RATIO 0.82; CREATININE 6.69 mg/dl (0.61-1.24); MAGNESIUM 1.9 mg/dl (1.7-2.5); POTASSIUM 4.3 mmol/L (3.5-5.1); TOTAL PROTEIN 5.3 g/dl (6.1-8.1)
[2016-10-09 11:56] LABS: THYROID STIMULATING HORMONE 8.44 MIU/L (0.465-4.680)
[2016-10-09] MEDS ORDERED: HEPARIN 1000 UNITS/ML 10 ML INJ CATHETER SCH (13:00)
[2016-10-09] MEDS: CALCITRIOL 0.25 MCG CAP PO SCH (14:49)
[2016-10-09] MEDS: FOLIC ACID 1 MG TAB PO SCH (14:49)
[2016-10-09] MEDS: DOCUSATE SODIUM 100 MG CAP PO SCH ×2 (14:51→21:07)
[2016-10-09] MEDS: hydrALAzine 20 MG INJ IV PRN (14:51)
[2016-10-09] MEDS: LISINOPRIL 20 MG TAB PO SCH (14:51)
--- NOTE | 2016-10-09 17:26 | RADRPT ---
PROCEDURE: MRI Brain without contrast. CLINICAL INDICATION: Altered mental status. Concern for degenerative disease. TECHNIQUE: MRI of the brain was performed with the following sequences obtained: Sagittal, coronal and axial T1-weighted, axial T2-weighted, axial FLAIR, axial diffusion weighted (with ADC map), and coronal GRE. COMPARISON: CT brain 10/08/2016 FINDINGS: The diffusion sequence is normal with no evidence for acute infarct. No hemorrhage, mass effect or mass lesion is present. The extraaxial spaces are clear of collections. The ventricular system and sulci are normal. A few punctate scattered hyperintense FLAIR foci of the subcortical white matter are nonspecific, possibly the sequela of a small vessel ischemic disease. Vasculitis and manifesta tion of migraine disorder are possibilities. Demyelination is believed to be less likely No signal alteration is present within the brainstem or cerebellum. The fourth ventricle is midline and the craniocervical junction lesion is intact. The area of the sella is normal. The bony calvarium and skull base are intact. The visualized paranasal sinuses are clear. Hyperint ense T2 signal within the mastoid air cells is present bilaterally concerning for mastoid fluid Phys iologic flow voids within the internal carotid and vertebral arteries are maintained. RPTAT:HJJR IMPRESSION: 1. Mild nonspecific subcortical white matter disease likely sequela of small vessel ischemia with v asculitis, migraine disorder and less likely demyelination day and differential diagnostic possibili ties. 2. No evidence of neurodegenerative disease otherwise. 3. Suggestion of small amount of fluid in the mastoid air cells bilaterally. Physician Denisse Date Time Electronically viewed and signed by Physician Denisse on 10/09/2016 17:26 /
[2016-10-09] MEDS: TAMSULOSIN (SR) 0.4 MG CAP PO SCH (21:07)
[2016-10-09] MEDS: NIFEdipine (XL) 30 MG TAB PO SCH (21:08)
[2016-10-09] MEDS: ACETAMINOPHEN 325 MG TAB PO PRN (21:08)
[2016-10-10] VITALS (19 sets, daily range): BP systolic 133–176; BP diastolic 74–101; PULSE 66–90; RESP 19–20
[2016-10-10] MEDS: clonAZEPAM 0.5 MG TAB PO SCH ×4 (00:23→20:58)
[2016-10-10] MEDS: ACCU-CHEK XX SCH (02:00)
--- NOTE | 2016-10-10 02:19 | CONS ---
DATE OF ADMISSION: 10/08/2016 DATE OF CONSULTATION: 10/09/2016 TYPE OF CONSULTATION: Neurology. Thank you for your kind referral for evaluation of involuntary abnormal movements. HISTORY OF PRESENT ILLNESS: The patient is a 51-year-old gentleman with past medical history of hypertension, diabetes, gout, as well as kidney disease who was started on dialysis only 5 or 6 days ago, on the , and he had several episodes of hemodialysis. He said that 3 days ago last Thursday he started getting uncontrollable jerk-like movements, sort of hiccuping moving the body and his face as well and it seemed to worsen after hemodialysis on Thursday, but hemodialysis today did not affect of the jerk-like movements. They seem to be present when he is awake and worse when he gets up. He denies any new medications and he has no explanation for his problems. No headache. He does have chronic neck pain, somewhat worsening in the last several days. He had MRI of the brain which shows white matter disease. CT of the chest shows cardiomegaly, a small to moderate pericardial effusion, right more than left pleural effusion with compressive atelectasis, anasarca, atherosclerotic change. The patient's labs show hemoglobin 7.6, hematocrit 23, normal WBCs and platelets. Chemistry: BUN 35, creatinine 6.69, calcium 7, albumin 2.4. TSH 8.4. ALLERGIES: NONE. SOCIAL HISTORY: No alcohol, tobacco, drug use. FAMILY HISTORY: Not contributory. CURRENT MEDICATIONS: 1. Levofloxacin. 2. Nifedipine. 3. Heparin. 4. Lisinopril. 5. Folate. 6. Morphine 7. Tamsulosin. 8. Carvedilol. 9. Ergocalciferol. 10. Lasix. MEDICATIONS ON ADMISSION: 1. Tamsulosin. 2. Aranesp. 3. Atorvastatin. 4. Carvedilol. 5. . 6. Bumetanide. 7. Calcitriol. 8. Folic acid. PHYSICAL EXAMINATION: VITAL SIGNS: Temperature 98.7, pulse 72, 18 respirations, 136/74 blood pressure. GENERAL: Not in acute distress, lying in bed. HEENT: Normocephalic, atraumatic head. NECK: No carotid bruits. No thyromegaly. LUNGS: Clear to auscultation bilaterally. CARDIAC: Normal cardiac rhythm and sounds. ABDOMEN: Soft. EXTREMITIES: Bilateral edema. NEUROLOGIC: Patient is awake, alert, and oriented x3 with fluent speech. Cranial nerve examination shows intact visual alexander bilaterally. Pupils round , reactive to light from 4 to 2 mm bilaterally. Extraocular movements intact without nystagmus. Symmetrical face. Preserved facial strength and sensation. Tongue is in midline. Palate elevates symmetrically. Motor strength examination seems to be preserved in all extremities. Sensory examination grossly intact to light touch and pain. Deep tendon reflexes 1+ upper extremities, absent in lower extremities. Downgoing toes bilaterally. Coordination preserved on [id number] testing. No dysmetria or tremor. The patient exhibits frequent, every few seconds jerk-like movements involving his trunk and neck, seem to cause slight extensor posturing of the trunk, several myoclonic jerks, sort of hiccuping, a few in a row and then followed by a few seconds of absence of movements. The patient states when he gets up it gets much worse, he is not able to ambulate normally. I forgot to mention that he does not have any definite asterixis. IMPRESSION: New onset myoclonus, essentially generalized. Etiology is not clear to me; toxic metabolic is one possibility given that patient just started hemodialysis a few days ago. I am not sure, but the possibility of some sort of dysequilibrium syndrome could be on the differential, although there is no major electrolyte imbalances and also there is no definite worsening of jerks, at least after the last hemodialysis. Patient was found to have bilateral pleural effusions, workup underway, possible pneumonia. He is going to have thoracentesis. it is unclear if it could relate to this. I would try to treat patient symptomatically and put him on small dose of Clonazepam to see how it would help his movements. There is a condition called spinal myoclonus. Given that he has severe neck pain, maybe we could obtain MRI of the cervical spine to exclude any major abnormality. Thank you very much for this interesting consultation. Dictated By: HERBIE HOLCOMB/AWILDA Conf#: [id number] DID#: [id number]
[2016-10-10] MEDS: FUROSEMIDE 40 MG INJ IV SCH ×2 (05:50→23:15)
[2016-10-10 06:36] LABS: ADD SCAN DIFF NO
[2016-10-10 06:42] LABS: ABNORMAL IP MESSAGE 1; HEMATOCRIT 21.5 % (42.0-52.0); MEAN CORPUSCULAR HEMOGLOBIN 26.6 pg (29.0-33.0); MEAN CORPUSCULAR HGB CONC 32.1 g/dl (32.0-37.0); MEAN PLATELET VOLUME 10.6 fl (7.4-10.4); PLATELET COUNT 200 10^3/UL (140-415); RED BLOOD COUNT 2.59 10^6/ul (4.70-6.10); RED CELL DISTRIBUTION WIDTH 14.2 % (11.5-14.5); WHITE BLOOD COUNT 5.4 10^3/ul (4.8-10.8)
[2016-10-10 06:51] LABS: HEMOGLOBIN 6.9 g/dl (14.0-18.0)
[2016-10-10 07:13] LABS: ALBUMIN 2.3 g/dl (3.3-4.9); ALBUMIN/GLOBULIN RATIO 0.79; CALCIUM 7.4 mg/dl (8.4-10.2); CREATININE 5.83 mg/dl (0.61-1.24); POTASSIUM 4.1 mmol/L (3.5-5.1); TOTAL PROTEIN 5.2 g/dl (6.1-8.1)
[2016-10-10] MEDS: INSULIN ASPART [NOVOLOG] 3 ML PEN SC SCH ×4 (07:55→20:55)
[2016-10-10 08:07] LABS: BASOPHIL # 0.1 10^3/ul (0.0-0.1); EOSINOPHILS # 0.2 10^3/ul (0.0-0.5); LYMPHOCYTES # 1.9 10^3/ul (0.8-2.9); MONOCYTE # 0.2 10^3/ul (0.3-0.9); NEUTROPHIL # 3.1 10^3/ul (1.6-7.5)
[2016-10-10] MEDS: INSULIN GLARGINE [LANtus] 3 ML PEN SC SCH (08:30)
[2016-10-10] MEDS: HEPARIN 5,000 UNIT/0.5 ML VIAL SC SCH ×2 (09:00→20:58)
[2016-10-10] MEDS: DOCUSATE SODIUM 100 MG CAP PO SCH ×2 (09:01→20:54)
[2016-10-10] MEDS: CALCITRIOL 0.25 MCG CAP PO SCH (09:01)
[2016-10-10] MEDS: FOLIC ACID 1 MG TAB PO SCH (09:01)
[2016-10-10] MEDS: LISINOPRIL 20 MG TAB PO SCH (09:02)
[2016-10-10] MEDS: NIFEdipine (XL) 30 MG TAB PO SCH ×2 (09:02→20:55)
--- NOTE | 2016-10-10 11:15 | RADRPT ---
Echocardiogram Report Patient Name: ONELIA GALLEGOS Gender: Male Date: 1965 Study Date: 10-Oct-2016 Clinical Exercise Specialist: Sharmaine Gomes [facility] Location: [facility] Ref. Physician: JOSE SANCHEZ Quality: Good Procedures: Transthoracic echocardiogram with complete 2D, M-Mode, and doppler examination. Indications: Pericardial Effusion. 2D/M Mode Doppler Measurement Value Normal Ranges Measurement Value Normal Ranges LVIDd 2D 6.0 3.5 - 5.6 cm AV Peak Nic 1.3 m/sec LVIDs 2D 3.5 2.1 - 4.1 cm AV Peak PG 7.0 mmHg FS 2D 41.1 % LVOT Peak Nic 1.1 m/sec LVPWd 2D 1.1 0.6 - 1.1 cm LVOT Peak PG 5.0 mmHg IVSd 2D 1.1 0.6 - 1.1 cm MV E Peak Nic 0.9 m/sec IVS/LVPW 2D 1.0 MV A Peak Nic 1.0 m/sec AoR Diam 2D 2.9 2.0 - 3.7 cm MV E/A 0.9 LA/Ao 2D 2 0 - 1 MV Decel Time 144 msec EDV 2D 217.0 cm3 MV E/A 0.9 ESV 2D 44.4 cm3 TR Peak Nic 3.1 m/sec LA Dimen 2D 5.0 2.3 - 4.0 cm TR Peak PG 38.0 mmHg RVSP 41.0 mmHg Findings Left Ventricle: Normal left ventricular systolic function. Normal left ventricular cavity size. Mild concentric left ventricular hypertrophy. Ejection fraction is visually estimated at 55 %. Tissue Doppler/Mitral Doppler indices are consistent with impaired relaxation (Stage I diastolic dysfunction). Right Ventricle: Normal right ventricular size. Normal right ventricular systolic function. Left Atrium: There is mild enlargement of left atrium. Right Atrium: The right atrium is normal in size. Mitral Valve: Mitral valve leaflets appear moderately thickened. Mild mitral annular calcification. Trace mitral regurgitation. Aortic Valve: No significant aortic stenosis or insufficiency. Aortic cusps appear mildly calcified. Tricuspid Valve: Normal appearance of the tricuspid valve. Estimated peak PA systolic pressure 41 mmHg. There is mild tricuspid regurgitation. Pulmonic Valve: Normal pulmonic valve appearance. Pericardium: Small pericardial effusion. Aorta: Normal aortic root. IVC: Normal size and normal respiratory collapse consistent with normal right atrial pressure. Conclusions 1.Normal left ventricular systolic function. Normal left ventricular cavity size. Mild concentric left ventricular hypertrophy. Ejection fraction is visually estimated at 55 %. Tissue Doppler/Mitral Doppler indices are consistent with impaired relaxation (Stage I diastolic dysfunction). 2.Normal right ventricular size. Normal right ventricular systolic function. 3.There is mild enlargement of left atrium. 4.The right atrium is normal in size. 5.Normal appearance of the tricuspid valve. Estimated peak PA systolic pressure 41 mmHg. There is mild tricuspid regurgitation. 6.No significant valvular stenosis or regurgitation seen of remaining visualized valves. 7.Small pericardial effusion. Electronically Signed By: Raymundo Higuera 10-Oct-2016 11:15:27 -0700 Patient Name: ONELIA GALLEGOS Study Date: 10-Oct-2016 [id number]
[2016-10-10] MEDS ORDERED: LIDOCAINE 1% (MPF) 5 ML VIAL ONE (12:08)
--- NOTE | 2016-10-10 12:30 | CONS ---
Date/Time of Note Date/Time of Note DATE: 10/10/16 TIME: 12:23 Assessment/Plan Assessment/Plan Additional Assessment/Plan 1. End-stage renal disease on hemodialysis 3 times a week. 2. Accelerated hypertension. improving 3. Uncontrolled body movements. 4. History of diabetes mellitus. 5. History of gout. 6. History of depression. 7. History of anemia of chronic renal disease. 10. Moderate pleural effusion s/p thoracentesis today 1.6 L removed PLAN: s/p HD yesterday , S/p thoracentesis today 1.6 L remove,d Plan for another HD today his regular schedule is TTS, will order HD for tomorrow also MRI brain done, s/p neurology consult will follow up Consultation Date/Type/Reason Admit Date/Time October 08, 2016 at 02:28 Initial Consult Date September Type of Consultation: NEPHROLOGY Reason for Consultation doing ok, jerky movements better Referring Provider: JOSE SANCHEZ 24 HR Interval Summary Free Text/Dictation s/p thoracentesis today, MRI brain Exam/Review of Systems Vital Signs Vitals Vital Signs Date Time Temp Pulse Resp B/P Pulse Ox O2 Delivery O2 Flow Rate FiO2 10/10/16 12:04 90 10/10/16 11:17 98.1 20 150/76 98 10/10/16 04:37 2.0 10/10/16 02:19 Nasal Cannula 10/08/16 16:50 28 Intake and Output 10/09/16 10/09/16 10/10/16 15:00 23:00 07:00 Intake Total 300 ml 750 ml Output Total 7300 ml 800 ml Balance -7000 ml -50 ml Exam GENERAL: Awake, alert. Mild distress due to the shortness of breath. HEENT: Normal. Oropharynx clear. Pupil equal, round, reactive to light and accommodation. NECK: Supple, no JVD, no lymphadenopathy. LUNGS: decreased BS +, crackles at bases HEART: S1, S2, with regular rhythm, no murmur. ABDOMEN: Soft, nontender, nondistended. Bowel sounds are present. EXTREMITIES: 2+ pitting edema. NEUROLOGICAL: Nonfocal, intact. PSYCHIATRIC: Appropriate affect and mood. Results Result Diagram: 10/10/16 0620 10/10/16 0620 Results 24 hrs Laboratory Tests Test 10/09/16 18:25 10/09/16 21:05 10/10/16 06:20 10/10/16 08:25 Bedside Glucose 120 126 88 White Blood Count 5.4 Red Blood Count 2.59 L Hemoglobin 6.9 *L Hematocrit 21.5 L Mean Corpuscular Volume 83.0 Mean Corpuscular Hemoglobin 26.6 L Mean Corpuscular Hemoglobin Concent 32.1 Red Cell Distribution Width 14.2 Platelet Count 200 Mean Platelet Volume 10.6 H Neutrophils % 57.0 Lymphocytes % 35.0 Monocytes % 4.0 Eosinophils % 3.0 Basophils % 1.0 Nucleated Red Blood Cells % Neutrophils # 3.1 Lymphocytes # 1.9 Monocytes # 0.2 L Eosinophils # 0.2 Basophils # 0.1 Nucleated Red Blood Cells # Sodium Level 136 Potassium Level 4.1 Chloride Level 102 Carbon Dioxide Level 31 Anion Gap 7 L Blood Urea Nitrogen 27 H Creatinine 5.83 H Glucose Level 77 Calcium Level 7.4 L Total Bilirubin 0.0 L Direct Bilirubin 0.00 Indirect Bilirubin 0.0 Aspartate Amino Transf (AST/SGOT) 18 Alanine Aminotransferase (ALT/SGPT) 25 Alkaline Phosphatase 47 Total Protein 5.2 L Albumin 2.3 L Globulin 2.90 Albumin/Globulin Ratio 0.79 Medications Medications Current Medications Ondansetron HCl (Zofran Inj) 4 mg Q6H PRN IV NAUSEA AND/OR VOMITING; Start at 05:00 Acetaminophen (Tylenol Tab) 650 mg Q6H PRN PO PAIN AND OR ELEVATED TEMP Last administered on 10/09/16 21:08; Admin Dose 650 MG; Start 10/08/16 at 05:00 Insulin Glargine (Lantus) 10 unit DAILY@08 SC Last administered on 10/10/16 08 :30; Admin Dose 10 UNIT; Start 10/08/16 at 08:00 Diagnostic Test (Pha) (Accu-Chek) 1 ea 02 XX ; Start 10/09/16 at 02:00 Miscellaneous Information 1 ea NOTE XX ; Start 10/08/16 at 05:15 Glucose (Glutose) 15 gm Q15M PRN PO DECREASED GLUCOSE; Start 10/08/16 at 05:15 Glucose (Glutose) 22.5 gm Q15M PRN PO DECREASED GLUCOSE; Start 10/08/16 at 05: 15 Dextrose (D50w Syringe) 25 ml Q15M PRN IV DECREASED GLUCOSE; Start 10/08/16 at 05:15 Dextrose (D50w Syringe) 50 ml Q15M PRN IV DECREASED GLUCOSE; Start 10/08/16 at 05:15 Glucagon (Glucagen) 1 mg Q15M PRN IM DECREASED GLUCOSE; Start 10/08/16 at 05:15 Glucose 15 gm 15 gm Q15M PRN BUCCAL DECREASED GLUCOSE; Start 10/08/16 at 05:15 Levofloxacin/ Dextrose (Levaquin 250 Mg/ D5W 50 ml (Pmx)) 50 ml @ 50 mls/hr Q48H IVPB ; Start 10/10/16 at 15:00 Hydralazine HCl (Apresoline) 10 mg Q4H PRN IV ELEVATED BLOOD PRESSURE Last administered on 10/09/16 14:51; Admin Dose 10 MG; Start 10/08/16 at 08:00 Calcitriol (Rocaltrol) 0.25 mcg DAILY PO Last administered on 10/10/16 09:01; Admin Dose 0.25 MCG; Start 10/08/16 at 10:30 Carvedilol (Coreg) 12.5 mg BID PO Last administered on 10/10/16 09:01; Admin Dose 12.5 MG; Start 10/08/16 at 10:30 Docusate Sodium (Colace) 100 mg BID PO Last administered on 10/10/16 09:01; Admin Dose 100 MG; Start 10/08/16 at 10:30 Ergocalciferol (Drisdol) 50,000 unit We@09 PO Last administered on 10/08/16 11 :49; Admin Dose 50,000 UNIT; Start 10/08/16 at 10:30 Folic Acid (Folic Acid) 1 mg DAILY PO Last administered on 10/10/16 09:01; Admin Dose 1 MG; Start 10/09/16 at 09:00 Tamsulosin HCl (Flomax) 0.4 mg QPM PO Last administered on 10/09/16 21:07; Admin Dose 0.4 MG; Start 10/08/16 at 21:00 Heparin Sodium (Porcine) (Heparin (5000 Units/0.5 ml)) 5,000 unit BID SC Last administered on 10/08/16 20:28; Admin Dose 5,000 UNIT; Start 5/24/17 at 10:30 Morphine Sulfate (morphine) 4 mg Q4H PRN IV PAIN Last administered on 04:22; Admin Dose 4 MG; Start 10/09/16 at 04:00 Lisinopril (Zestril) 40 mg DAILY PO Last administered on 10/10/16 09:02; Admin Dose 40 MG; Start 10/09/16 at 11:00 Nifedipine (Procardia Xl) 30 mg BID PO Last administered on 10/10/16 09:02; Admin Dose 30 MG; Start 10/09/16 at 21:00 Clonazepam (Klonopin) 0.5 mg Q8 PO Last administered on 10/10/16 05:51; Admin Dose 0.5 MG; Start 10/10/16 at 00:00 TRIPP GARAY MD October 10, 2016 12:30
--- NOTE | 2016-10-10 12:49 | CONS ---
Date/Time of Note Date/Time of Note DATE: 10/10/16 TIME: 12:47 Copies To: Additional comments: I came to see the patient, he is not in the room, taken to MRI HERBIE SHRESTHA MD October 10, 2016 12:49
[2016-10-10 14:16] LABS: FLUID APPEARANCE CLEAR; FLUID TYPE THORACENTHESIS
[2016-10-10 14:17] LABS: FLUID RBC EST 0; FLUID WBC'S 43 /cmm
[2016-10-10 14:18] LABS: FLUID LYMPHOCYTES 63 %; FLUID MONOCYTES 30 %; FLUID NEUTROPHILS 7 %
[2016-10-10] MEDS ORDERED: LEVOFLOXACIN 250MG/D5W (PMX) 50 ML IVPB SCH (15:00)
--- NOTE | 2016-10-10 15:14 | RADRPT ---
PROCEDURE: XR Chest. CLINICAL INDICATION: Shortness of breath TECHNIQUE: Single frontal chest x-ray. COMPARISON: CT chest from 10/08/2016 FINDINGS: Right pleural effusion is significantly decreased, status post interval thoracentesis. There is no evidence of pneumothorax. There is a persistent small left pleural effusion with atelectasis. The cardiac silhouette is mildly prominent. No focal consolidations are seen. A right Perma-Cath in pl lm with the tip in the superior vena cava. IMPRESSION: 1. Significantly decreased right pleural effusion, status post thoracentesis. No evidence of pneum othorax. 2. Persistent small left effusion with atelectasis. 3. Prominent cardiac silhouette. RPTAT: RR .Yonny White MD, Date Time Electronically viewed and signed by .Yonny White MD, on 10/10/2016 15:14 .A/
--- NOTE | 2016-10-10 16:18 | RADRPT ---
PROCEDURE: US guided right thoracentesis. CLINICAL INDICATION: Shortness of breath. Right pleural effusion. TECHNIQUE: Prior to the procedure, informed consent was obtained. The risks, benefits, and alternatives were e xplained to the patient or the patient's family, including but not limited to bleeding, infection, p ain, visceral or vascular damage, shock, pneumothorax, chest tube placement, air embolism, and . The patient or the patient's family understood the risks and the alternatives and wished to proce ed with the study. Informed written consent was obtained. A procedural pause was performed. The patient's name, date of , and procedure to be performed were verified. Ultrasound of the right hemithorax was performed in the axial and sagittal planes. A right pleural e ffusion is noted. Utilizing ultrasound guidance, optimal location for entry to the pleural cavity wa s ascertained. The overlying skin was prepped and draped in the usual sterile fashion. Approximate ly 10 ml of 1% Xylocaine was injected locally for pain control. Using ultrasound guidance, a 5-Fren Yueh catheter was introduced into the right pleural space without difficulty. Fluid was aspirated . COMPARISON: None. FINDINGS: Initial ultrasound demonstrates fluid in the right pleural space. Approximately 1.66 liters of sero us fluid was aspirated and sent to the laboratory. IMPRESSION: 1. Satisfactory ultrasound-guided right thoracentesis. RPTAT: QQ .Ravin Vang MD, Date Time Electronically viewed and signed by .Ravin Vang MD, on 10/10/2016 16:18 .R/
--- NOTE | 2016-10-10 17:37 | PN ---
Date/Time of Note Date/Time of Note DATE: 10/10/16 TIME: 17:31 Assessment/Plan VTE Prophylaxis VTE Prophylaxis Intervention: heparin Lines/Catheters IV [facility] Assessment/Plan Chief Complaint/Hosp Course 1. Uncontrolled body movements-Improved Neurology consultation appreciated MRI shows no significant findings to explain the body movements 2. End-stage renal disease, on dialysis. Hemodialysis per nephrology. 3. Hypertension, blood pressure-improved Will titrate blood pressure for improved control. Patient's blood pressure will also improve as we take out more fluid. 4. Possible diabetes Check an A1c Continue carb controlled diet for now 5. History of gout. Continue home meds 6. History of depression. Continue home meds 7. Anemia secondary to end-stage renal disease continue monitoring. 8. Bilateral pleural effusions on CAT scan: Likely secondary to fluid overload , will order thoracentesis. We will send pleural fluid for culture to rule out underlying pneumonia Prophylaxis: Heparin Problems: Subjective 24 Hr Interval Summary Constitutional: no complaints Exam/Review of Systems Vital Signs Vitals Vital Signs Date Time Temp Pulse Resp B/P Pulse Ox O2 Delivery O2 Flow Rate FiO2 10/10/16 16:13 74 10/10/16 15:50 16 10/10/16 15:48 98.1 145/77 98 10/10/16 14:58 2.0 10/10/16 02:19 Nasal Cannula 10/08/16 16:50 28 Intake and Output 10/09/16 10/09/16 10/10/16 15:00 23:00 07:00 Intake Total 300 ml 750 ml Output Total 7300 ml 800 ml Balance -7000 ml -50 ml Exam Constitutional: alert Respiratory: clear to auscultation Cardiovascular: regular rate and rhythm Gastrointestinal: soft, No distended Musculoskeletal: nl extremities to inspection Results Result Diagram: 10/10/16 0620 10/10/16 0620 Results 24 hrs Laboratory Tests Test 10/09/16 18:25 10/09/16 21:05 10/10/16 06:20 10/10/16 08:25 Bedside Glucose 120 126 88 White Blood Count 5.4 Red Blood Count 2.59 L Hemoglobin 6.9 *L Hematocrit 21.5 L Mean Corpuscular Volume 83.0 Mean Corpuscular Hemoglobin 26.6 L Mean Corpuscular Hemoglobin Concent 32.1 Red Cell Distribution Width 14.2 Platelet Count 200 Mean Platelet Volume 10.6 H Neutrophils % 57.0 Lymphocytes % 35.0 Monocytes % 4.0 Eosinophils % 3.0 Basophils % 1.0 Nucleated Red Blood Cells % Neutrophils # 3.1 Lymphocytes # 1.9 Monocytes # 0.2 L Eosinophils # 0.2 Basophils # 0.1 Nucleated Red Blood Cells # Sodium Level 136 Potassium Level 4.1 Chloride Level 102 Carbon Dioxide Level 31 Anion Gap 7 L Blood Urea Nitrogen 27 H Creatinine 5.83 H Glucose Level 77 Calcium Level 7.4 L Total Bilirubin 0.0 L Direct Bilirubin 0.00 Indirect Bilirubin 0.0 Aspartate Amino Transf (AST/SGOT) 18 Alanine Aminotransferase (ALT/SGPT) 25 Alkaline Phosphatase 47 Total Protein 5.2 L Albumin 2.3 L Globulin 2.90 Albumin/Globulin Ratio 0.79 Test 10/10/16 12:00 Body Fluid Type THORACENTHESIS Body Fluid Volume 800.0 Body Fluid Color YELLOW Body Fluid Appearance CLEAR Body Fluid WBC 43 Body Fluid RBC 0 Body Fluid Neutrophils % 7 Body Fluid Lymphocytes (%) 63 Body Fluid Monocytes % 30 Medications Medications Current Medications Ondansetron HCl (Zofran Inj) 4 mg Q6H PRN IV NAUSEA AND/OR VOMITING; Start at 05:00 Acetaminophen (Tylenol Tab) 650 mg Q6H PRN PO PAIN AND OR ELEVATED TEMP Last administered on 10/09/16 21:08; Admin Dose 650 MG; Start 10/08/16 at 05:00 Insulin Glargine (Lantus) 10 unit DAILY@08 SC Last administered on 10/10/16 08 :30; Admin Dose 10 UNIT; Start 10/08/16 at 08:00 Diagnostic Test (Pha) (Accu-Chek) 1 ea 02 XX ; Start 10/09/16 at 02:00 Miscellaneous Information 1 ea NOTE XX ; Start 10/08/16 at 05:15 Glucose (Glutose) 15 gm Q15M PRN PO DECREASED GLUCOSE; Start 10/08/16 at 05:15 Glucose (Glutose) 22.5 gm Q15M PRN PO DECREASED GLUCOSE; Start 10/08/16 at 05: 15 Dextrose (D50w Syringe) 25 ml Q15M PRN IV DECREASED GLUCOSE; Start 10/08/16 at 05:15 Dextrose (D50w Syringe) 50 ml Q15M PRN IV DECREASED GLUCOSE; Start 10/08/16 at 05:15 Glucagon (Glucagen) 1 mg Q15M PRN IM DECREASED GLUCOSE; Start 10/08/16 at 05:15 Glucose 15 gm 15 gm Q15M PRN BUCCAL DECREASED GLUCOSE; Start 10/08/16 at 05:15 Levofloxacin/ Dextrose (Levaquin 250 Mg/ D5W 50 ml (Pmx)) 50 ml @ 50 mls/hr Q48H IVPB Last administered on 10/10/16 15:36; Admin Dose 50 MLS/HR; Start at 15:00 Hydralazine HCl (Apresoline) 10 mg Q4H PRN IV ELEVATED BLOOD PRESSURE Last administered on 10/09/16 14:51; Admin Dose 10 MG; Start 10/08/16 at 08:00 Calcitriol (Rocaltrol) 0.25 mcg DAILY PO Last administered on 10/10/16 09:01; Admin Dose 0.25 MCG; Start 10/08/16 at 10:30 Carvedilol (Coreg) 12.5 mg BID PO Last administered on 10/10/16 09:01; Admin Dose 12.5 MG; Start 10/08/16 at 10:30 Docusate Sodium (Colace) 100 mg BID PO Last administered on 10/10/16 09:01; Admin Dose 100 MG; Start 10/08/16 at 10:30 Ergocalciferol (Drisdol) 50,000 unit We@09 PO Last administered on 10/08/16 11 :49; Admin Dose 50,000 UNIT; Start 10/08/16 at 10:30 Folic Acid (Folic Acid) 1 mg DAILY PO Last administered on 10/10/16 09:01; Admin Dose 1 MG; Start 10/09/16 at 09:00 Tamsulosin HCl (Flomax) 0.4 mg QPM PO Last administered on 10/09/16 21:07; Admin Dose 0.4 MG; Start 10/08/16 at 21:00 Heparin Sodium (Porcine) (Heparin (5000 Units/0.5 ml)) 5,000 unit BID SC Last administered on 10/08/16 20:28; Admin Dose 5,000 UNIT; Start 10/08/16 at 10:30 Morphine Sulfate (morphine) 4 mg Q4H PRN IV PAIN Last administered on 04:22; Admin Dose 4 MG; Start 10/09/16 at 04:00 Lisinopril (Zestril) 40 mg DAILY PO Last administered on 10/10/16 09:02; Admin Dose 40 MG; Start 10/09/16 at 11:00 Nifedipine (Procardia Xl) 30 mg BID PO Last administered on 10/10/16 09:02; Admin Dose 30 MG; Start 10/09/16 at 21:00 Clonazepam (Klonopin) 0.5 mg Q8 PO Last administered on 10/10/16 15:36; Admin Dose 0.5 MG; Start 10/10/16 at 00:00 GURJIT CHAIREZ October 10, 2016 17:37
[2016-10-10] MEDS: TAMSULOSIN (SR) 0.4 MG CAP PO SCH (20:54)
[2016-10-11] VITALS (16 sets, daily range): BP systolic 137–169; BP diastolic 71–90; PULSE 71–96; RESP 16–20
[2016-10-11] MEDS: ACCU-CHEK XX SCH (00:33)
[2016-10-11] MEDS: ACETAMINOPHEN 325 MG TAB PO PRN (00:47)
[2016-10-11] MEDS: clonAZEPAM 0.5 MG TAB PO SCH ×2 (06:00→14:18)
[2016-10-11] MEDS: FUROSEMIDE 40 MG INJ IV SCH (06:00)
[2016-10-11 06:50] LABS: ADD SCAN DIFF NO
[2016-10-11 07:07] LABS: BASOPHILS % 0.3 % (0.0-2.0); EOSINOPHILS # 0.1 10^3/ul (0.0-0.5); HEMATOCRIT 24.3 % (42.0-52.0); HEMOGLOBIN 7.7 g/dl (14.0-18.0); LYMPHOCYTES # 1.8 10^3/ul (0.8-2.9); LYMPHOCYTES % 29.2 % (15.0-51.0); MEAN CORPUSCULAR HEMOGLOBIN 26.3 pg (29.0-33.0); MEAN CORPUSCULAR HGB CONC 31.7 g/dl (32.0-37.0); MEAN CORPUSCULAR VOLUME 82.9 fl (82.0-101.0); MEAN PLATELET VOLUME 11.7 fl (7.4-10.4); MONOCYTE # 0.5 10^3/ul (0.3-0.9); MONOCYTES % 8.3 % (0.0-11.0); NEUTROPHIL # 3.7 10^3/ul (1.6-7.5); PLATELET COUNT 200 10^3/UL (140-415); RED BLOOD COUNT 2.93 10^6/ul (4.70-6.10); RED CELL DISTRIBUTION WIDTH 14.1 % (11.5-14.5); WHITE BLOOD COUNT 6.1 10^3/ul (4.8-10.8)
[2016-10-11] MEDS: INSULIN ASPART [NOVOLOG] 3 ML PEN SC SCH ×2 (07:55→11:50)
--- NOTE | 2016-10-11 08:33 | RADRPT ---
PROCEDURE: MRI OF THE CERVICAL SPINE. CLINICAL INDICATION: Myoclonus. Bilateral pneumonia. TECHNIQUE: Multiple MRI images were obtained utilizing multiple sequences in the sagittal, axial an d coronal planes. Images were interpreted on a high-resolution PACS system. COMPARISON: None. FINDINGS: There is mild straightening of the upper cervical lordosis. Moderate spondylosis changes at C5-6 co nsists of disc space narrowing and anterior osteophyte formation. No evidence for fracture. The ce rvical spinal cord appears normal. The craniocervical junction appears normal. Findings at specific disc levels: C2-3: Disc height and hydration is preserved. No evidence for central or foraminal stenosis. The facets appear normal. C3-4: Disc height is preserved and hydration is minimally decreased. There is no evidence for bulg e or focal herniation. There are mild degenerative changes of the facets. No evidence for foraminal stenosis. AP diameter of the central spinal canal at midline: 12.2 mm. C4-5: Disc height is preserved and hydration is minimally decreased. There is no evidence for bulg e or focal herniation. There are mild degenerative changes of the facets. AP diameter of the central spinal canal at midline: 15 mm. C5-6: Disc height and hydration is minimally decreased. There is a 2 mm bulge. There are mild deg enerative changes of the facets. No evidence for foraminal stenosis. AP diameter of the central spinal canal at midline: 12 mm. C6-7: Disc height is preserved and hydration is minimally decreased. There is no evidence for bulg e or focal herniation. The facets appear normal. No evidence for foraminal stenosis. AP diameter of the central spinal canal at midline: 15 mm. C7-T1: Disc height is preserved and hydration is minimally decreased. There is no evidence for bul ge or focal herniation. The facets appear normal. No evidence for foraminal stenosis. IMPRESSION: 1. Cervical spinal cord appears normal. 2. Relatively mild spondylosis at C5-6 without evidence for central or foraminal stenosis. 3. No focal herniation is seen. RPTAT: XX .Catarino Gurrola MD, MD Date Time Electronically viewed and signed by .Catarino Gurrola MD, on 10/11/2016 08:33 .T/
[2016-10-11] MEDS: DOCUSATE SODIUM 100 MG CAP PO SCH (08:54)
[2016-10-11] MEDS: FOLIC ACID 1 MG TAB PO SCH (08:54)
[2016-10-11] MEDS: CALCITRIOL 0.25 MCG CAP PO SCH (08:54)
[2016-10-11] MEDS: NIFEdipine (XL) 30 MG TAB PO SCH (08:55)
[2016-10-11] MEDS: LISINOPRIL 20 MG TAB PO SCH (08:55)
[2016-10-11] MEDS: HEPARIN 5,000 UNIT/0.5 ML VIAL SC SCH (09:01)
--- NOTE | 2016-10-11 10:55 | PDOCDIS ---
Discharge Instructions CONDITION Patient Condition: Good HOME CARE INSTRUCTIONS: Special Diet: 1800 KERMIT ADA 2 GM NA ACTIVITY: Activity Restrictions: No Restrictions FOLLOW UP/APPOINTMENTS Appointments F/U WITH YOUR PCP IN 1-2 WEEKS AND WITH YOUR HD CENTER SCHEDULED GURJIT CHAIREZ October 11, 2016 10:55
[2016-10-11] MEDS: INSULIN GLARGINE [LANtus] 3 ML PEN SC SCH (12:26)
--- NOTE | 2016-10-11 15:12 | CONS ---
Date/Time of Note Date/Time of Note DATE: 10/11/16 TIME: 15:11 Assessment/Plan Assessment/Plan Additional Assessment/Plan 1. End-stage renal disease on hemodialysis 3 times a week. 2. Accelerated hypertension. improving 3. Uncontrolled body movements. 4. History of diabetes mellitus. 5. History of gout. 6. History of depression. 7. History of anemia of chronic renal disease. 10. Moderate pleural effusion s/p thoracentesis today 1.6 L removed PLAN: S/p thoracentesis today 1.6 L remove,d HD today then pt can go home his regular schedule is TTS, MRI brain done, s/p neurology consult will follow up Consultation Date/Type/Reason Admit Date/Time October 08, 2016 at 02:28 Initial Consult Date September Type of Consultation: NEPHROLOGY Referring Provider: JOSE SANCHEZ Exam/Review of Systems Vital Signs Vitals Vital Signs Date Time Temp Pulse Resp B/P Pulse Ox O2 Delivery O2 Flow Rate FiO2 10/11/16 15:09 98.1 86 20 159/84 99 10/11/16 05:28 2.0 10/10/16 02:19 Nasal Cannula 10/08/16 16:50 28 Intake and Output 10/10/16 10/10/16 10/11/16 15:00 23:00 07:00 Intake Total 300 ml 120 ml Output Total 7300 ml Balance -7000 ml 120 ml Results Result Diagram: 10/11/16 0600 10/10/16 0620 Results 24 hrs Laboratory Tests Test 10/10/16 19:57 10/11/16 06:00 10/11/16 08:25 10/11/16 12:23 Bedside Glucose 163 116 96 White Blood Count 6.1 Red Blood Count 2.93 L Hemoglobin 7.7 L Hematocrit 24.3 L Mean Corpuscular Volume 82.9 Mean Corpuscular Hemoglobin 26.3 L Mean Corpuscular Hemoglobin Concent 31.7 L Red Cell Distribution Width 14.1 Platelet Count 200 Mean Platelet Volume 11.7 H Neutrophils % 60.0 Lymphocytes % 29.2 Monocytes % 8.3 Eosinophils % 2.0 Basophils % 0.3 Nucleated Red Blood Cells % 0.0 Neutrophils # 3.7 Lymphocytes # 1.8 Monocytes # 0.5 Eosinophils # 0.1 Basophils # 0.0 Nucleated Red Blood Cells # 0.0 Hemoglobin A1c 5.5 Medications Medications Current Medications Ondansetron HCl (Zofran Inj) 4 mg Q6H PRN IV NAUSEA AND/OR VOMITING; Start at 05:00 Acetaminophen (Tylenol Tab) 650 mg Q6H PRN PO PAIN AND OR ELEVATED TEMP Last administered on 10/11/16 00:47; Admin Dose 650 MG; Start 10/08/16 at 05:00 Insulin Glargine (Lantus) 10 unit DAILY@08 SC Last administered on 10/11/16 12 :26; Admin Dose 10 UNIT; Start 10/08/16 at 08:00 Diagnostic Test (Pha) (Accu-Chek) 1 ea 02 XX ; Start 10/09/16 at 02:00 Miscellaneous Information 1 ea NOTE XX ; Start 10/08/16 at 05:15 Glucose (Glutose) 15 gm Q15M PRN PO DECREASED GLUCOSE; Start 10/08/16 at 05:15 Glucose (Glutose) 22.5 gm Q15M PRN PO DECREASED GLUCOSE; Start 10/08/16 at 05: 15 Dextrose (D50w Syringe) 25 ml Q15M PRN IV DECREASED GLUCOSE; Start 10/08/16 at 05:15 Dextrose (D50w Syringe) 50 ml Q15M PRN IV DECREASED GLUCOSE; Start 10/08/16 at 05:15 Glucagon (Glucagen) 1 mg Q15M PRN IM DECREASED GLUCOSE; Start 10/08/16 at 05:15 Glucose 15 gm 15 gm Q15M PRN BUCCAL DECREASED GLUCOSE; Start 10/08/16 at 05:15 Levofloxacin/ Dextrose (Levaquin 250 Mg/ D5W 50 ml (Pmx)) 50 ml @ 50 mls/hr Q48H IVPB Last administered on 10/10/16 15:36; Admin Dose 50 MLS/HR; Start at 15:00 Hydralazine HCl (Apresoline) 10 mg Q4H PRN IV ELEVATED BLOOD PRESSURE Last administered on 10/09/16 14:51; Admin Dose 10 MG; Start 10/08/16 at 08:00 Calcitriol (Rocaltrol) 0.25 mcg DAILY PO Last administered on 10/11/16 08:54; Admin Dose 0.25 MCG; Start 10/08/16 at 10:30 Carvedilol (Coreg) 12.5 mg BID PO Last administered on 10/11/16 08:56; Admin Dose 12.5 MG; Start 10/08/16 at 10:30 Docusate Sodium (Colace) 100 mg BID PO Last administered on 10/11/16 08:54; Admin Dose 100 MG; Start 10/08/16 at 10:30 Ergocalciferol (Drisdol) 50,000 unit We@09 PO Last administered on 10/08/16 11 :49; Admin Dose 50,000 UNIT; Start 10/08/16 at 10:30 Folic Acid (Folic Acid) 1 mg DAILY PO Last administered on 10/11/16 08:54; Admin Dose 1 MG; Start 10/09/16 at 09:00 Tamsulosin HCl (Flomax) 0.4 mg QPM PO Last administered on 10/10/16 20:54; Admin Dose 0.4 MG; Start 10/08/16 at 21:00 Heparin Sodium (Porcine) (Heparin (5000 Units/0.5 ml)) 5,000 unit BID SC Last administered on 10/11/16 09:01; Admin Dose 5,000 UNIT; Start 10/08/16 at 10:30 Morphine Sulfate (morphine) 4 mg Q4H PRN IV PAIN Last administered on 04:22; Admin Dose 4 MG; Start 10/09/16 at 04:00 Lisinopril (Zestril) 40 mg DAILY PO Last administered on 10/11/16 08:55; Admin Dose 40 MG; Start 10/09/16 at 11:00 Nifedipine (Procardia Xl) 30 mg BID PO Last administered on 10/11/16 08:55; Admin Dose 30 MG; Start 10/09/16 at 21:00 Clonazepam (Klonopin) 0.5 mg Q8 PO Last administered on 10/11/16 14:18; Admin Dose 0.5 MG; Start 10/10/16 at 00:00 TRIPP GARAY MD October 11, 2016 15:12
[2016-10-11] MEDS ORDERED: POTASSIUM CHLORIDE (SR) 20 MEQ TAB PO STA (15:46)
--- NOTE | 2016-10-11 16:53 | CONS ---
Date/Time of Note Date/Time of Note DATE: 10/11/16 TIME: 16:49 Consult Date/Type/Reason Admit Date/Time October 08, 2016 at 02:28 Initial Consult Date Type of Consultation: neurology Ordering Provider: JOSE SANCHEZ Subjective no acute events. Excessive movements gradually resolved on clonazepam. Pt is being discharged Objective Vital Signs Date Time Temp Pulse Resp B/P Pulse Ox O2 Delivery O2 Flow Rate FiO2 10/11/16 16:05 86 10/11/16 15:09 98.1 20 159/84 99 10/11/16 05:28 2.0 10/10/16 02:19 Nasal Cannula 10/08/16 16:50 28 Intake and Output 10/10/16 10/10/16 10/11/16 15:00 23:00 07:00 Intake Total 300 ml 120 ml Output Total 7300 ml Balance -7000 ml 120 ml Results/Medications Result Diagram: 10/11/16 0600 10/10/16 0620 Results 24 hrs Laboratory Tests Test 10/10/16 19:57 10/11/16 06:00 10/11/16 08:25 10/11/16 12:23 Bedside Glucose 163 116 96 White Blood Count 6.1 Red Blood Count 2.93 L Hemoglobin 7.7 L Hematocrit 24.3 L Mean Corpuscular Volume 82.9 Mean Corpuscular Hemoglobin 26.3 L Mean Corpuscular Hemoglobin Concent 31.7 L Red Cell Distribution Width 14.1 Platelet Count 200 Mean Platelet Volume 11.7 H Neutrophils % 60.0 Lymphocytes % 29.2 Monocytes % 8.3 Eosinophils % 2.0 Basophils % 0.3 Nucleated Red Blood Cells % 0.0 Neutrophils # 3.7 Lymphocytes # 1.8 Monocytes # 0.5 Eosinophils # 0.1 Basophils # 0.0 Nucleated Red Blood Cells # 0.0 Hemoglobin A1c 5.5 Medications Current Medications Ondansetron HCl (Zofran Inj) 4 mg Q6H PRN IV NAUSEA AND/OR VOMITING; Start at 05:00 Acetaminophen (Tylenol Tab) 650 mg Q6H PRN PO PAIN AND OR ELEVATED TEMP Last administered on 10/11/16t 00:47; Admin Dose 650 MG; Start 10/08/16 at 05:00 Insulin Glargine (Lantus) 10 unit DAILY@08 SC Last administered on 10/11/16 12 :26; Admin Dose 10 UNIT; Start 10/08/16 at 08:00 Diagnostic Test (Pha) (Accu-Chek) 1 ea 02 XX ; Start 10/09/16 at 02:00 Miscellaneous Information 1 ea NOTE XX ; Start 10/08/16 at 05:15 Glucose (Glutose) 15 gm Q15M PRN PO DECREASED GLUCOSE; Start 10/08/16 at 05:15 Glucose (Glutose) 22.5 gm Q15M PRN PO DECREASED GLUCOSE; Start 10/08/16 at 05: 15 Dextrose (D50w Syringe) 25 ml Q15M PRN IV DECREASED GLUCOSE; Start 10/08/16 at 05:15 Dextrose (D50w Syringe) 50 ml Q15M PRN IV DECREASED GLUCOSE; Start 10/08/16 at 05:15 Glucagon (Glucagen) 1 mg Q15M PRN IM DECREASED GLUCOSE; Start 10/08/16 at 05:15 Glucose 15 gm 15 gm Q15M PRN BUCCAL DECREASED GLUCOSE; Start 10/08/16 at 05:15 Levofloxacin/ Dextrose (Levaquin 250 Mg/ D5W 50 ml (Pmx)) 50 ml @ 50 mls/hr Q48H IVPB Last administered on 10/10/16 15:36; Admin Dose 50 MLS/HR; Start at 15:00 Hydralazine HCl (Apresoline) 10 mg Q4H PRN IV ELEVATED BLOOD PRESSURE Last administered on 10/09/16 14:51; Admin Dose 10 MG; Start 10/08/16 at 08:00 Calcitriol (Rocaltrol) 0.25 mcg DAILY PO Last administered on 10/11/16 08:54; Admin Dose 0.25 MCG; Start 10/08/16 at 10:30 Carvedilol (Coreg) 12.5 mg BID PO Last administered on 10/11/16 08:56; Admin Dose 12.5 MG; Start 10/08/16 at 10:30 Docusate Sodium (Colace) 100 mg BID PO Last administered on 10/11/16 08:54; Admin Dose 100 MG; Start 10/08/16 at 10:30 Ergocalciferol (Drisdol) 50,000 unit We@09 PO Last administered on 10/08/16 11 :49; Admin Dose 50,000 UNIT; Start 10/08/16 at 10:30 Folic Acid (Folic Acid) 1 mg DAILY PO Last administered on 10/11/16 08:54; Admin Dose 1 MG; Start 10/09/16 at 09:00 Tamsulosin HCl (Flomax) 0.4 mg QPM PO Last administered on 10/10/16 20:54; Admin Dose 0.4 MG; Start 10/08/16 at 21:00 Heparin Sodium (Porcine) (Heparin (5000 Units/0.5 ml)) 5,000 unit BID SC Last administered on 10/11/16 09:01; Admin Dose 5,000 UNIT; Start 10/08/16 at 10:30 Morphine Sulfate (morphine) 4 mg Q4H PRN IV PAIN Last administered on 04:22; Admin Dose 4 MG; Start 10/09/16 at 04:00 Lisinopril (Zestril) 40 mg DAILY PO Last administered on 10/11/16 08:55; Admin Dose 40 MG; Start 10/09/16 at 11:00 Nifedipine (Procardia Xl) 30 mg BID PO Last administered on 10/11/16 08:55; Admin Dose 30 MG; Start 10/09/16 at 21:00 Clonazepam (Klonopin) 0.5 mg Q8 PO Last administered on 10/11/16 14:18; Admin Dose 0.5 MG; Start 10/10/16 at 00:00 Assessment/Plan Chief Complaint/Hosp Course PHYSICAL EXAMINATION: GENERAL: Not in acute distress. HEENT: Normocephalic, atraumatic head. NECK: No carotid bruits. No thyromegaly. LUNGS: Clear to auscultation bilaterally. CARDIAC: Normal cardiac rhythm and sounds. ABDOMEN: Soft. EXTREMITIES: Bilateral edema. NEUROLOGIC: Patient is awake, alert, and oriented x3 with fluent speech. Cranial nerve examination shows intact visual [place] bilaterally. Pupils round , reactive to light from 4 to 2 mm bilaterally. Extraocular movements intact without nystagmus. Symmetrical face. Preserved facial strength and sensation. Tongue is in midline. Palate elevates symmetrically. Motor strength examination seems to be preserved in all extremities. Sensory examination grossly intact to light touch and pain. Deep tendon reflexes 1+ upper extremities, absent in lower extremities. Downgoing toes bilaterally. Coordination preserved on [id number] testing. No dysmetria or tremor. Normal gait IMPRESSION: New onset myoclonus, essentially generalized, likely toxic metabolic, resolved. Problems: HERBIE SHRESTHA MD October 11, 2016 16:53
--- NOTE | 2016-10-12 06:28 | DS ---
DATE OF ADMISSION: 10/08/2016 DATE OF DISCHARGE: 10/11/2016 DISCHARGE DIAGNOSES: 1. Uncontrolled jerks, possibly secondary to initiation of dialysis, now resolved. Nephrology cons ultation appreciated. MRI showed no significant findings. 2. End-stage renal disease. Continue dialysis. 3. Hypertension. Stable with medications. 4. History of gout. Continue home medications. 5. Depression. Continue home medications. 6. Anemia secondary to end-stage renal disease. 7. Bilateral pleural effusion, likely secondary to fluid overload, status post thoracentesis, on di alysis, now stable. HOSPITAL COURSE: The patient is a 51-year-old male with the recent diagnosis of end-stage renal dis ease, hypertension and gout. The patient presents with uncontrolled body shaking. The patient was seen by neurology. The patient had an MRI that showed no significant findings. Cervical spine MRI also showed no significant findings. Workup was negative for any possible etiology for the shakes a nd the shakes did resolve on their own. It is possible that it could be from recent initiation of d ialysis. Nonetheless, the patient was tolerating dialysis well in-house. Neurology felt that there was no clear etiology of the shaking and once again it did resolve. The patient was felt to be sta ble for discharge, was cleared for discharge per his configuration management specialist, Dr. Cifuentes. Of note, the patient was tested for diabetes and his A1c was normal. On the day of discharge, the patient's vitals, labs , physical exam were stable. He had no acute complaints. Questions were answered. CONDITION ON DISCHARGE: Stable. DISPOSITION: To home. MEDICATIONS: The patient to continue his usual home medications. FOLLOWUP: The patient is to follow up with his PCP in 1 to 2 weeks and with his HD center as schedu led. Greater than 30 minutes was spent coordinating discharge of this patient. Dictated By: GURJIT CHAIREZ MD BS/NTS Conf#: [id number] DID#: [id number]
== END 2016-10-11 17:30 | disposition home or self-care (01) | DRG 91 ==
LOC: E/R 20:52 → TEL 10-08 02:28
PROVIDERS: ADMIT Internal Medicine; ATTEND Internal Medicine
PROC: 5A1D60Z (ICD-10-PCS; principal; 2016-10-10)
PROC: 0W993ZZ Drainage of Right Pleural Cavity, Percutaneous Approach (ICD-10-PCS; 2016-10-10)
DX: G25.3 Myoclonus (principal); J18.9 Pneumonia, unspecified organism; J90 Pleural effusion, not elsewhere classified; N18.6 End stage renal disease; I12.0 Hypertensive chronic kidney disease with stage 5 chronic kidney disease or end stage renal disease; E83.51 Hypocalcemia; Z99.2 Dependence on renal dialysis; D63.1 Anemia in chronic kidney disease
CPT/HCPCS: 32555; 36415; 36430; 70450; 70551; 71010; 71250; 72141; 80053; 82550; 82962; 83036; 83690; 83735; 83880; 84100; 84443; 84484; 85025; 85610; 85730; 86850; 86900; 86901; 86920; 87040; 87070; 87102; 87116; 89050; 90935; 93005; 93306; 93970; 96374; 96375; J0360; J0610; J0692; J0744; J1644; J1815; J1940; J1956; J2270; J2405; J3475; P9016; P9047